=== PATIENT | male | born 1990 | race Caucasian/White ===

== ENCOUNTER 2016-08-05 12:39 | Emergency (ER) | payer OTHER | END 2016-08-05 15:00 | disposition home or self-care (01) | LOC: ER 12:39 | DX: B34.9 Viral infection, unspecified (principal); F17.210 Nicotine dependence, cigarettes, uncomplicated; Z79.899 Other long term (current) drug therapy | CPT/HCPCS: 87502 ==

== ENCOUNTER 2016-10-28 06:56 | Emergency (ER) | payer OTHER | END 2016-10-28 07:39 | disposition home or self-care (01) | LOC: ER 06:56 | DX: K08.89 Other specified disorders of teeth and supporting structures (principal); I10 Essential (primary) hypertension; F17.210 Nicotine dependence, cigarettes, uncomplicated ==